=== PATIENT | male | born 1995 | race American Indian/Alaskan Native ===

== ENCOUNTER 2018-05-30 19:28 | Emergency (ER) | payer SELFPAY ==
[2018-05-30 19:38] VITALS: BP 153/99
[2018-05-30] MEDS ORDERED: XYLOCAINE 1% MPF 5 mL INFILTRATI ONE (19:57)
[2018-05-30] MEDS ORDERED: ROCEPHIN IM ONE (19:57)
[2018-05-30] MEDS ORDERED: ZITHROMAX PO ONE (19:58)
--- NOTE | 2018-05-30 20:00 | Emergency Department Report ---
ED Dysuria HPI - HPI Chief Complaint: Urogenital-Male Stated Complaint: STD Time Seen by Provider: 05/30/18 19:57 Duration: 3 Days Severity: Mild Symptoms: Dysuria: Yes, Frequency: No, Suprapubic Pain: No, Flank Pain: No, Fever: No, Hematuria: No, Abdominal Pain: No, Previous UTI's: No Other History: 22 yo AA male with exposure to Chlamydia ED Review of Systems ROS: Stated complaint: STD Other details as noted in HPI Comment: All other systems reviewed and negative Constitutional: denies: chills Eyes: denies: eye pain Respiratory: denies: orthopnea Cardiovascular: denies: palpitations Genitourinary: as per HPI, dysuria Skin: denies: rash, lesions ED Past Medical Hx - Past Medical History Previous Medical History?: No - Surgical History Past Surgical History?: No - Social History Smoking Status: Current Every Day Smoker Substance Use Type: Marijuana Dysuria Exam - Exam General: Vital signs noted. No distress. Alert and acting appropriately. Exam: Yes Moist Mucous Membranes, No CVA Tenderness, No Abdominal Tenderness, No Rigidity or Guarding ED Course Vital Signs 05/30/18 05/30/18 19:34 19:43 Temperature 97.6 F 98.1 F Pulse Rate 87 87 Respiratory 18 Rate Blood Pressure 153/99 153/99 O2 Sat by Pulse 99 98 Oximetry ED Medical Decision Making - Medical Decision Making gc sent and pending treated with rocephin and azithromycin - Differential Diagnosis known exposure Critical care attestation.: If time is entered above; I have spent that time in minutes in the direct care of this critically ill patient, excluding procedure time. ED Disposition Clinical Impression: STD (male) Disposition: DC-01 TO HOME OR SELFCARE Is pt being admited?: No Does the pt Need Aspirin: No Condition: Stable Instructions: Chlamydia Infection (ED) Additional Instructions: safe sex Time of Disposition: 19:59
[2018-05-30 20:29] LABS: Bilirubin,Urine NEG (Negative); Blood,Urine SM (Negative); Color,Urine Yellow (Yellow); Mucus,Urine 2+ /HPF; Protein,Urine <15 mg/dL mg/dL (Negative)
== END 2018-05-30 20:37 | disposition home or self-care (01) ==
LOC: ED 19:28
DX: A64 Unspecified sexually transmitted disease (principal); F17.200 Nicotine dependence, unspecified, uncomplicated; F12.10 Cannabis abuse, uncomplicated
CPT/HCPCS: 81001; 87591; 96372; 99283; J0696